=== PATIENT | male | born 1960 | race Asian ===

== ENCOUNTER 2021-10-31 06:07 | Day surgery (SDC) | payer MEDICAID ==
[2021-10-28 13:57] LABS: COVID AG,FIA SOURCE NASAL SWAB
[~2021-10-31] VITALS: Ht 181.6 cm; Wt 72.7 kg
[2021-10-31] MEDS ORDERED: FentaNYL CITRATE PF 100 MCG/2 ML VIAL IVP ONE (06:08)
[2021-10-31] MEDS ORDERED: MIDAZOLAM HCL 2 MG/2 ML VIAL IVP ONE (06:08)
[2021-10-31] MEDS ORDERED: TETRACAINE HCL/PF 0.5% 4 ML OPHTHALMIC SOLUTION OS ONE (06:45)
[2021-10-31] MEDS ORDERED: RINGERS SOLUTION,LACTATED 500 ML IV ONE (06:45)
[2021-10-31] MEDS ORDERED: TROPICAMIDE 1% 2 ML OPHTHALMIC SOLUTION ONE (07:00)
[2021-10-31] MEDS ORDERED: MOXIFLOXACIN HCL 0.5% 3 ML OPHTHALMIC SOLUTION ONE (07:00)
[2021-10-31] MEDS ORDERED: PHENYLEPHRINE HCL 2.5% 2 ML OPHTHALMIC SOLUTION ONE (07:00)
[2021-10-31] MEDS ORDERED: KETOROLAC TROMETHAMINE 0.5% 5 ML OPHTHALMIC SOLUTION ONE (07:00)
[2021-10-31] MEDS: CYCLOPENTOLATE HCL 1% 2 ML OPHTHALMIC SOLUTION OS SCH ×3 (07:16→07:31)
[2021-10-31] MEDS: TROPICAMIDE 1% 2 ML OPHTHALMIC SOLUTION OS SCH ×3 (07:24→07:39)
[2021-10-31] MEDS: MOXIFLOXACIN HCL 0.5% 3 ML OPHTHALMIC SOLUTION OS SCH ×3 (07:24→07:38)
[2021-10-31] MEDS: PHENYLEPHRINE HCL 2.5% 2 ML OPHTHALMIC SOLUTION OS SCH ×3 (07:24→07:39)
[2021-10-31] MEDS ORDERED: FLURBIPROFEN SODIUM 0.03% 2.5 ML OPHTHALMIC SOLUTION ONE (07:25)
[2021-10-31] MEDS: FLURBIPROFEN SODIUM 0.03% 2.5 ML OPHTHALMIC SOLUTION OS SCH ×3 (07:26→07:38)
[2021-10-31] MEDS ORDERED: CYCLOPENTOLATE HCL 1% 2 ML OPHTHALMIC SOLUTION ONE (07:26)
[2021-10-31 07:27] LABS: GLUCOMETER DEV NAME(LOC) SDS.; GLUCOSE,POINT OF CARE 258 MG/DL (70-110)
[2021-10-31] MEDS ORDERED: PrednisoLONE ACETATE 1% 5 ML OPHTHALMIC SUSPENSION ONE (08:33)
[2021-10-31] MEDS ORDERED: TETRACAINE HCL/PF 0.5% 4 ML OPHTHALMIC SOLUTION ONE (16:43)
[2021-10-31] MEDS ORDERED: APRACLONIDINE 0.5% 5 ML OPHTHALMIC SOLUTION ONE (16:43)
[2021-10-31] MEDS ORDERED: BALANCED SALT 15 ML OPHTHALMIC IRRIG.SOLN ONE (16:43)
[2021-10-31] MEDS ORDERED: LIDOCAINE/PF 1% 2 ML VIAL ONE (16:43)
[2021-10-31] MEDS ORDERED: HYALURONATE SOD 8.5MG/0.85ML 10 MG/ML SYRINGE IO ONE (16:43)
[2021-10-31] MEDS ORDERED: EPINEPHrine 1:1,000 [1 MG/ML] AMP ONE (16:43)
== END 2021-10-31 09:45 | disposition home or self-care (01) ==
LOC: SURGERY 06:07
PROVIDERS: ATTEND Ophthalmology
DX: E11.36 Type 2 diabetes mellitus with diabetic cataract (principal); H25.12 Age-related nuclear cataract, left eye; Z79.899 Other long term (current) drug therapy; Z88.0 Allergy status to penicillin
CPT/HCPCS: 66984; 82962; 87426; 93005; C9803; J0171; J2250; J3010; J3490; J7120; V2632